=== PATIENT | female | born 1975 | race African-American/Black ===

== ENCOUNTER 2021-04-15 09:59 | Emergency (ER) | payer BC ==
[~2021-04-15] VITALS: Ht 165.1 cm; Wt 82.4 kg
--- NOTE | 2021-04-15 10:59 | PHYS DOC ---
Past History Past Medical History: Hypertension Past Surgical History: Hysterectomy, Tonsillectomy, Other Additional Past Surgical Histo: TREATMENT FOR RIGHT LUNG COLLAPSE Alcohol Use: Occasionally Adult General Chief Complaint Chief Complaint: HEADACHE HPI HPI Patient is a 46-year-old female presenting via POV for headache. Reports predominantly right-sided headache started 5 days ago without any known inciting event, trauma, ingestion or other known exposure. She has taken Tylenol and ibuprofen without significant relief. Lights make worse. Pain is sharp in nature with mild radiation to back of her head. Timing of symptoms has been constant since onset. She also reports development of generalized chest discomfort and tingling in right arm and leg earlier this morning while at rest which prompted her to contact her primary care physician. It was recommended that she present to our ER for evaluation of her headache and episode of chest discomfort that was self-limiting in self resolved without intervention in less than 5 minutes. Patient denies any recent changes in health, no new medications or antibiotics, no fever, sick contacts or travel Review of Systems Review of Systems Fourteen body systems of review of systems have been reviewed. See HPI for pertinent positives and negative responses, other carter all other systems are negative, non-pertinent or non-contributory Allergies Allergies Allergies Coded Allergies Type Severity Reaction Last Updated Verified codeine Allergy Unknown 04/15/21 Yes sulfamethoxazole Allergy Unknown 04/15/21 Yes trimethoprim Allergy Unknown 04/15/21 Yes Physical Exam Physical Exam Constitutional: Well developed, well nourished, no acute distress, non-toxic appearance. HENT: Normocephalic, atraumatic, bilateral external ears normal, oropharynx moist, no oral exudates, nose normal. Eyes: PERRLA, EOMI, conjunctiva normal, no discharge. Neck: Normal range of motion, no tenderness, supple, no stridor. Cardiovascular: Heart rate regular, sinus rhythm, no murmurs rubs or gallops Lungs & Thorax: Bilateral breath sounds clear to auscultation Abdomen: Bowel sounds normal, soft, no tenderness, no masses, no pulsatile masses. Nonsurgical abdomen, no peritoneal signs Skin: Warm, dry, no erythema, no rash. Back: No tenderness, no CVA tenderness. Extremities: No tenderness, no cyanosis, no clubbing, ROM intact, no edema. 5/5 muscle strength of all 4 extremities Neurologic: Alert and oriented X 3, cranial nerves II through XII intact, normal motor & sensory function, no focal deficits noted. Psychologic: Anxious affect and mood Current Patient Data Vital Signs Vital Signs Date Time Temp Pulse Resp B/P (MAP) Pulse Ox O2 Delivery O2 Flow Rate FiO2 04/15/21 10:05 98.5 85 20 142/100 (114) 99 Room Air Lab Results Laboratory Tests Test 04/15/21 10:25 White Blood Count 5.0 x10^3/uL Red Blood Count 3.98 x10^6/uL Hemoglobin 13.5 g/dL Hematocrit 39.3 % Mean Corpuscular Volume 99 fL Mean Corpuscular Hemoglobin 34 pg Mean Corpuscular Hemoglobin Concent 34 g/dL Red Cell Distribution Width 12.5 % Platelet Count 269 x10^3/uL Neutrophils (%) (Auto) 67 % Lymphocytes (%) (Auto) 23 % Monocytes (%) (Auto) 8 % Eosinophils (%) (Auto) 1 % Basophils (%) (Auto) 1 % Neutrophils # (Auto) 3.3 x10^3uL Lymphocytes # (Auto) 1.1 x10^3/uL Monocytes # (Auto) 0.4 x10^3/uL Eosinophils # (Auto) 0.0 x10^3/uL Basophils # (Auto) 0.0 x10^3/uL Sodium Level 139 mmol/L Potassium Level 4.5 mmol/L Chloride Level 105 mmol/L Carbon Dioxide Level 25 mmol/L Anion Gap 9 Blood Urea Nitrogen 15 mg/dL Creatinine 0.9 mg/dL Estimated GFR (Cockcroft-Gault) 82.3 Glucose Level 107 mg/dL Calcium Level 9.4 mg/dL Troponin I Quantitative < 0.017 ng/mL Current Medications Medications (Trade) Dose Ordered Sig/Ike Route PRN Reason Start Time Stop Time Status Last Admin Dose Admin Sodium Chloride 1,000 ml @ 1,000 mls/hr 1X ONCE IV 04/15/21 11:30 04/15/21 12:29 DC 04/15/21 11:46 Ketorolac Tromethamine (Toradol 15mg Vial) 15 mg 1X ONCE IVP 04/15/21 11:30 04/15/21 11:44 DC 04/15/21 11:51 Prochlorperazine Edisylate (Compazine) 10 mg 1X ONCE IV 04/15/21 11:30 04/15/21 11:44 DC 04/15/21 11:50 Diphenhydramine HCl (Benadryl) 25 mg 1X ONCE IVP 04/15/21 11:30 04/15/21 11:44 DC 04/15/21 11:54 EKG EKG 80 ordered and interpreted by myself at 1020 hrs. as sinus rhythm at 88 bpm, prolonged OR 208 and prolonged QTC at 476 otherwise unremarkable intervals, no axis deviation, x1 PVC without any obvious ischemic findings, no STEMI Radiology/Procedures Radiology/Procedures EXAM: CT head without contrast INDICATION: Right-sided headache COMPARISON: None TECHNIQUE: Axial CT imaging through the head without intravenous contrast. One or more of the following individualized dose reduction techniques were utilized for this examination: 1. Automated exposure control 2. Adjustment of the mA and/or kV according to patient size 3. Use of iterative reconstruction technique. FINDINGS: The ventricles and sulci are normal. Diego-white matter differentiation is maintained. There is no intracranial hemorrhage, acute infarct, or mass lesion. Basal cisterns are clear. The skull and scalp are intact. Paranasal sinuses and mastoid air cells are clear. Globes and orbits are intact.. IMPRESSION: Normal CT of the head. Electronically signed by: Jeanna Rodríguez MD (04/15/2021 11:12 AM) [id number] Heart Score C/O Chest Pain: No HEART Score for Chest Pain: HEART Score for Chest Pain Response (Comments) Value History Slighlty/Non-Suspicious 0 ECG Nonspecific Repolarizatio 1 Age < 45 0 Risk Factors No Risk Factors 0 Troponin < Normal Limit 0 Total 1 Risk Factors: Risk Factors: DM, Current or recent (<one month) smoker, HTN, HLP, family history of CAD, obesity. Risk Scores: Risk Factors: DM, Current or recent (<one month) smoker, HTN, HLP, family history of CAD, obesity. Course & Med Decision Making Course & Med Decision Making ABCs unremarkable. I disclosed entirety of ER findings and discussed most likely diagnosis of headache that improved with ER intervention and unspecified chest pain that self resolved in less than 5 minutes without recurrence. Patient has no known history of migraine and is never seen a neurologist in the past, given that patient symptoms alleviated with ER intervention joint decision to defer further diagnostic work-up such as lumbar puncture. Regarding patient's chest pain, heart score reviewed and joint decision made to discharge home. As such, I stressed need for close outpatient follow-up to review today's ER visit. Strict return precautions were also discussed at length with good understanding by patient. Patient voiced understanding and agreement with the plan. Patient knows to come back for repeat evaluation if concerning signs or symptoms present prior to outpatient follow-up. Hemodynamically stable, ambulatory and well- appearing at time of disposition. Dragon Disclaimer Dragon Disclaimer This electronic medical record was generated, in whole or in part, using a voice recognition dictation system. Departure Departure: Impression: Primary Impression: Headache Additional Impression: Chest pain, unspecified Disposition: HOME / SELF CARE / HOMELESS Condition: IMPROVED Referrals: NON,STAFF (PCP) Additional Instructions: You were seen for headache and chest pain. Your workup did not show any acute abnormalities today, but does not indicate that you do not have underlying cardiovascular disease or other neurologic abnormalities such as migraines. You do need to follow up with your primary doctor and potentially a neurologist and/or advanced practice nurse psychotherapist for further evaluation and treatment. You should return to the ED if you develop worsening chest pain, shortness of breath, fever, abnormal sweating, leg swelling, or any other new or concerning symptoms. It was a pleasure to take care of you and I wish you the best going forward Problem Qualifiers MAITE WILLIAM DO Apr 15, 2021 10:59
[2021-04-15 11:03] LABS: BASO % 1 % (0-3); EOS % 1 % (0-3); HEMATOCRIT 39.3 % (36.0-47.0); HEMOGLOBIN 13.5 g/dL (12.0-15.5); LYMPH # 1.1 x10^3/uL (1.0-4.8); LYMPH % 23 % (24-48); MEAN CORPUSCULAR HEMOGLOBIN 34 pg (25-35); MEAN CORPUSCULAR HGB CONC 34 g/dL (31-37); MEAN CORPUSCULAR VOLUME 99 fL (79-100); MONO # 0.4 x10^3/uL (0.0-1.1); MONO % 8 % (0-9); NEUT # 3.3 x10^3uL (1.8-7.7); NEUT % 67 % (31-73); PLATELET COUNT 269 x10^3/uL (140-400); RED BLOOD COUNT 3.98 x10^6/uL (3.50-5.40); RED CELL DISTRIBUTION WIDTH 12.5 % (11.5-14.5)
[2021-04-15 11:14] LABS: CALCIUM 9.4 mg/dL (8.5-10.1); CREATININE 0.9 mg/dL (0.6-1.0); GFR 82.3; POTASSIUM 4.5 mmol/L (3.5-5.1)
--- NOTE | 2021-04-15 11:14 | RAD ---
EXAM: CT head without contrast INDICATION: Right-sided headache COMPARISON: None TECHNIQUE: Axial CT imaging through the head without intravenous contrast. One or more of the following individualized dose reduction techniques were utilized for this examinat ion: 1. Automated exposure control 2. Adjustment of the mA and/or kV according to patient size 3. Use of iterative reconstruction technique. FINDINGS: The ventricles and sulci are normal. Diego-white matter differentiation is maintained. There is no in tracranial hemorrhage, acute infarct, or mass lesion. Basal cisterns are clear. The skull and scalp are intact. Paranasal sinuses and mastoid air cells are clear. Globes and orbits are intact.. IMPRESSION: Normal CT of the head. Electronically signed by: Jeanna Rodríguez MD (04/15/2021 11:12 AM) [id number]
[2021-04-15] MEDS ORDERED: KETOROLAC 15 MG/ML VIAL. IVP ONE (11:30)
[2021-04-15] MEDS ORDERED: IV NORMAL SALINE 1,000ML 1,000 ML IV ONE (11:30)
[2021-04-15] MEDS ORDERED: diphenhydrAMINE 50 MG/ML VIAL IVP ONE (11:30)
[2021-04-15] MEDS ORDERED: PROCHLORPERAZINE 10 MG/2 ML VIAL. IV ONE (11:30)
[2021-04-15 12:45] VITALS: BP 103/65
--- NOTE | 2021-04-15 22:12 | EKG ---
[address] [address] Test Date: 2021-04-15 Test Time: 10:13:35 Pat Name: CURRY ATKINS Department: Room: Gender: F Director Of Operations Home Health: : 1975 Requested By: MAITE WILLIAM Order Number: [id number] Reading MD: Measurements Intervals Alleene Rate: 83 P: 49 NC: 206 QRS: -1 QRSD: 86 T: 25 QT: 390 QTc: 459 Interpretive Statements SINUS RHYTHM VENTRICULAR PREMATURE COMPLEX(ES) LEFTWARD AXIS ABNORMAL ECG RI6.02 No previous ECG available for comparison
== END 2021-04-15 12:50 | disposition home or self-care (01) ==
LOC: ER 09:59
DX: R51.9 Headache, unspecified (principal); R07.89 Other chest pain; I10 Essential (primary) hypertension; Z88.5 Allergy status to narcotic agent; Z88.2 Allergy status to sulfonamides; Z90.710 Acquired absence of both cervix and uterus
CPT/HCPCS: 36415; 70450; 80048; 84484; 85025; 93005; 96361; 96374; 96375; 99285; J0780; J1200; J1885; J7030